=== PATIENT | female | born 1995 ===

== ENCOUNTER 2016-09-05 20:29 | Emergency (ER) | payer OTHER ==
--- NOTE | 2016-09-05 21:34 | UC ---
Dental HPI - HPI Summary HPI Summary: This is an otherwise healthy 20 yo female who presented with complaints of dental pain x 3d. She reports teeth in her L maxillary area are tender. She reports temperature sensitivity and sweet sensitivity. No facial swelling. No fever. She has tried 200-400 mg of ibuprofen for pain relief. - History of Current Complaint Chief Complaint: UCDentalProblem Stated Complaint: ORAL PAIN (RIGHT SIDE) Hx Last Menstrual Period: 08/27/16 - Allergies/Home Medications Allergies/Adverse Reactions: Allergies Allergy/AdvReac Type Severity Reaction Status Date / Time No Known Allergies Allergy Verified 09/05/16 21:07 Home Medications: Home Medications Loratadine 10 mg PO DAILY 09/05/16 [History Confirmed 09/05/16] PMH/Surg Hx/FS Hx/Imm Hx Previously Healthy: Yes - Surgical History Surgical History: None - Family History Known Family History: Positive: None - Social History Alcohol Use: Rare Substance Use Type: None Smoking Status (MU): Never Smoked Tobacco Review of Systems Constitutional: Negative Skin: Negative Eyes: Negative ENT: Dental Pain Respiratory: Negative Cardiovascular: Negative Gastrointestinal: Negative Genitourinary: Negative Motor: Negative Neurovascular: Negative Musculoskeletal: Negative Neurological: Negative Psychological: Negative All Other Systems Reviewed And Are Negative: Yes Physical Exam Triage Information Reviewed: Yes Vital Signs: Initial Vital Signs Temp 98.3 F 09/05/16 21:08 Pulse 80 09/05/16 21:08 Resp 16 09/05/16 21:08 BP 117/74 09/05/16 21:08 Pulse Ox 100 09/05/16 21:08 Vital Signs Reviewed: Yes Eyes: Positive: Conjunctiva Clear ENT: Positive: Normal ENT inspection Dental: Positive: Gross Decay/Caries @ - diffusely. Negative: Percussion Tenderness @, Dental Fracture @, Abscess @, Cellulitis @, Cervical Lymphadenopathy Neck: Positive: Supple, Nontender, No Lymphadenopathy Dental Complaint Course/Dx - Course Course Of Treatment: Patient has complaints of dental pain but no gross pathology appreciated on exam with exception of caries. Recommended NSAIDs/ APAP for pain relief. She has an appointment with her dentist for ~10 days from now which she is encouraged to keep. No antibiotics are necessary at this time. - Differential Dx/Diagnosis Differential Diagnosis/Dx: Dental Abscess, Dental Caries, Peridontic Disease, Pharyngitis Provider Diagnoses: Dental pain Discharge - Discharge Plan Condition: Stable Disposition: HOME Patient Education Materials: Toothache (ED) Referrals: Chhaya Ames MD [Primary Care Provider] - Additional Instructions: Activity: As directed Instructions: 1. Please take ibuprofen for pain (you can use 600 mg 3-4 times daily) 2. Please keep your appointment with your dentist for later this month
[2016-09-05 21:37] VITALS: BP 117/74
== END 2016-09-05 21:42 | disposition home or self-care (01) ==
LOC: UCCORT 20:29
DX: K08.89 Other specified disorders of teeth and supporting structures (principal)
CPT/HCPCS: 99202; G0463

== ENCOUNTER 2018-06-04 20:27 | Emergency (ER) | payer OTHER ==
[2018-06-04 21:31] VITALS: BP 103/68
--- NOTE | 2018-06-04 22:09 | ED ---
Throat Pain/Nasal Congestion - HPI Summary HPI Summary: pt presents with approx 1 month history of rhinnorhea, occasional cough. she states that she is allergic to a lot of things. she has not missed any work for this. - History of Current Complaint Chief Complaint: UCGeneralIllness Hx Obtained From: Patient Onset/Duration: Lasting Weeks - 3-4 Severity: Mild Associated Signs And Symptoms: Negative: Wheezing Cough: Nonproductive Related History: Seasonal Allergies - Allergies/Home Medications Allergies/Adverse Reactions: Allergies Allergy/AdvReac Type Severity Reaction Status Date / Time No Known Allergies Allergy Verified 06/04/18 21:31 PMH/Surg Hx/FS Hx/Imm Hx Previously Healthy: Yes Infectious Disease History: No Infectious Disease History: Denies: Traveled Outside the [place] in Last 30 Days - Family History Known Family History: Positive: None - Social History Alcohol Use: Rare Substance Use Type: Reports: None Smoking Status (MU): Never Smoked Tobacco Review of Systems Constitutional: Negative Eyes: Negative Positive: Sore Throat, Nasal Discharge Cardiovascular: Negative Positive: Cough - non-productive Gastrointestinal: Negative Genitourinary: Negative Musculoskeletal: Negative Skin: Negative Positive: Headache Psychological: Normal All Other Systems Reviewed And Are Negative: No Physical Exam Triage Information Reviewed: Yes Vital Signs On Initial Exam: Initial Vitals Temp Pulse Resp BP Pulse Ox 99.5 F 74 17 103/68 100 06/04/18 21:26 06/04/18 21:26 06/04/18 21:26 06/04/18 21:26 06/04/18 21:26 Vital Signs Reviewed: Yes Appearance: Positive: Well-Appearing, No Pain Distress, Well-Nourished Skin: Positive: Warm, Dry Eyes: Positive: Normal, EOMI ENT: Positive: Normal ENT inspection, Hearing grossly normal, Pharynx normal Neck: Positive: Supple, Nontender Cardiovascular: Positive: Normal, RRR Abdomen Description: Positive: Nontender, Soft Bowel Sounds: Positive: Present Musculoskeletal: Positive: Normal, Strength/ROM Intact Neurological: Positive: Normal, Sensory/Motor Intact, CN Intact II-III Psychiatric: Positive: Normal AVPU Assessment: Alert Diagnostics - Vital Signs Vital Signs Temp Pulse Resp BP Pulse Ox 06/04/18 21:26 99.5 F 74 17 103/68 100 - Laboratory Lab Statement: Any lab studies that have been ordered have been reviewed, and results considered in the medical decision making process. EENT Course/Dx - Course Course Of Treatment: with pt's significant allergies, I recommend pt start a nasal steroid. will prescribe flonase. - Diagnoses Provider Diagnoses: Allergic rhinitis Discharge - Sign-Out/Discharge Documenting (check all that apply): Patient Departure All imaging exams completed and their final reports reviewed: No Studies - Discharge Plan Condition: Stable Disposition: HOME Prescriptions: Fluticasone NASAL SPRAY 50MCG* [Flonase NASAL SPRAY 50MCG*] 2 spray RIGHT NARE DAILY #1 btl Patient Education Materials: Allergic Rhinitis (DC) Referrals: Chhaya Ames MD [Primary Care Provider] - Additional Instructions: use the nasal inhaler as instructed. return if worse or any new symptoms. it is important to follow up with your primary care physician. you may also take decongestants for your persistent sinus congestion and runny nose. - Billing Disposition and Condition Condition: STABLE Disposition: Home
== END 2018-06-04 22:15 | disposition home or self-care (01) ==
LOC: UCCORT 20:27
DX: J30.9 Allergic rhinitis, unspecified (principal)
CPT/HCPCS: 99212; G0463